=== PATIENT | male | born 1970 | race Caucasian/White ===

== ENCOUNTER → 2017-09-22 | Outpatient (CLI) | payer OTHER ==
[~2017-09-22] MED LIST: ATOR-54 PO; ATV1 PO; FURO-85 PO; GLC/500 PO; LOSA1TAB PO; RXC5 PO; VICODIN PO
[2017-09-22 18:17] LABS: RATIO 28.4 mcg/mg (0-30.0)
[2017-09-22 18:18] LABS: ALT/SGPT 47 U/L (12-78); BLOOD UREA NITROGEN 19 mg/dl (7-18); BUN/CREATININE RATIO 16.6 (10-20); CALCIUM 9.2 mg/dl (8.5-10.1); CARBON DIOXIDE 24 mmol/L (21-32); CHLORIDE 99 mmol/L (98-107); CREATININE 1.15 mg/dl (0.60-1.40); GLUCOSE 234 mg/dl (70-99); SODIUM 132 mmol/L (136-145)
[2017-09-23 06:39] LABS: ESTIMATED AVERAGE GLUCOSE 183 mg/dl; HA1C FLAG Normal (Normal)
== END | disposition home or self-care (01) ==
LOC: C.LABMFLN 13:46
PROVIDERS: ATTEND Family Medicine
DX: Z00.00 Encounter for general adult medical examination without abnormal findings (principal); E78.00 Pure hypercholesterolemia, unspecified; I10 Essential (primary) hypertension; E11.9 Type 2 diabetes mellitus without complications

== ENCOUNTER → 2018-05-16 | Outpatient (CLI) | payer OTHER ==
[~2018-05-16] MED LIST changes: +CYM/30 PO; +EMPA1TAB3 PO; +GABA-1219 PO; +GLIP-197 PO; +HYDR-3983 PO; +LORA10CA10 PO; +LOSA50TA54 PO; +LPT/40 PO; +METF500T5 PO; +NRN100 PO; +PROC10TA PO; +PRVHFAIN INH; +RANI150T85 PO; +VERA1CAP7 PO; +trazodone PO
--- NOTE | 2018-05-16 11:17 | DIAGNOSTIC IMAGING REPORT ---
C-SPINE ROUTINE 4 OR 5 VIEWS HISTORY: 47 years-old Male CERVICALAGIA acute neck pain with prior surgery COMPARISON: Cervical spine radiographs 07/28/2015 TECHNIQUE: 5 views of the cervical spine FINDINGS: The seventh vertebral segment is not well seen on the lateral view secondary to positioning of the patient's shoulder. Postoperative changes from discectomy with anterior plate and screw fusion at C5-C7. No evidence of hardware fracture or loosening. There is straightening of the normal cervical lordosis. Multilevel uncovertebral spurring with mild posterior disc space narrowing at C4-C5. Anterior bridging osteophytosis is also seen at this level. Mild multilevel facet arthrosis. No acute fracture or subluxation. Bony neuroforamina appear patent. Soft tissues are unremarkable. No prevertebral soft tissue swelling. IMPRESSION: 1. No acute fracture or subluxation. 2. Postoperative changes of discectomy with anterior plate and screw fusion at C5-C7. No evidence of hardware fracture or loosening. 3. Mild degenerative changes as above. The above report was generated using voice recognition software. It may contain grammatical, syntax or spelling errors. Electronically signed by: Joseph Galarza M.D. 05/16/2018 11:16 AM Dictated Date/Time: 05/16/2018 11:10 AM
== END | disposition home or self-care (01) ==
LOC: C.RADBC 10:41
PROVIDERS: ATTEND Physician Assistant
DX: M54.2 Cervicalgia (principal); M96.1 Postlaminectomy syndrome, not elsewhere classified

== ENCOUNTER 2022-10-22 07:51 | Observation (INO) ==
--- NOTE | 2022-09-15 15:44 | PAT Medication Instructions ---
Medication Instructions Date of Service September 15, 2022 Home Medications Medication Instructions Recorded lisinopril 5 mg tablet 5 mg PO QAM #90 tabs 05/01/20 verapamil 200 mg capsule 24hr 200 mg PO QAM #90 caps 05/01/[address],ext.release atorvastatin 40 mg tablet (Lipitor) 40 mg PO HS #90 tabs 05/02/20 empagliflozin 25 mg tablet 25 mg PO DAILY #90 tabs 05/02/20 (Jardiance) mirtazapine 30 mg tablet (Remeron) 30 mg PO HS #90 tabs 05/02/20 gabapentin 300 mg capsule 300 mg PO TID #180 caps 05/28/20 varicella-zoster glycoE vacc-[id number] 0.5 ml IM .COMPLEX #1 ea 05/28/20 adj(PF) 50 mcg/0.5 mL IM susp, kit (Shingrix (PF)) metformin 500 mg tablet 500 mg PO BID #60 tabs 06/05/20 prochlorperazine maleate 5 mg 5 - 10 mg PO QID PRN headache #30 07/18/20 tablet tabs omeprazole 40 mg capsule,delayed 40 mg PO BID #60 caps 09/05/20 release albuterol sulfate 90 mcg/actuation 2 inh inhalation Q6H PRN acute 12/29/20 aerosol inhaler brochitis #18 grams venlafaxine 150 mg capsule,extended release 24 hr (Effexor XR) 150 mg PO QAM lorazepam 1 mg tablet 2 mg PO BID docusate sodium 100 mg capsule (Stool Softener) 100 mg PO QPM sennosides 8.6 mg tablet (senna) 8.6 mg PO BID venlafaxine 75 mg capsule,extended release 24 hr 75 mg PO QAM lisinopril 5 mg tablet 5 mg PO QAM verapamil 200 mg capsule [address] pellet [address],ext.release 200 mg PO QAM atorvastatin 40 mg tablet (Lipitor) 40 mg PO HS empagliflozin 25 mg tablet (Jardiance) 25 mg PO DAILY mirtazapine 30 mg tablet (Remeron) 30 mg PO HS gabapentin 300 mg capsule 300 mg PO TID varicella-zoster glycoE vacc-AS01B adj(PF) 50 mcg/0.5 mL IM susp, kit (Shingrix (PF)) 0.5 ml IM .COMPLEX metformin 500 mg tablet 500 mg PO BID prochlorperazine maleate 5 mg tablet 5 - 10 mg PO QID PRN omeprazole 40 mg capsule,delayed release 40 mg PO BID albuterol sulfate 90 mcg/actuation aerosol inhaler 2 inh inhalation Q6H PRN aspirin 81 mg tablet 81 mg PO QAM loratadine 10 mg tablet (Allergy Relief (loratadine)) 10 mg PO QAM multivitamin 1 tab PO QAM STOP 3 days before surgery empagliflozin 25 mg tablet (Jardiance) 25 mg PO DAILY Continue as directed prochlorperazine maleate 5 mg tablet 5 - 10 mg PO QID PRN(if needed) DO NOT take the morning of surgery sennosides 8.6 mg tablet (senna) 8.6 mg PO BID lisinopril 5 mg tablet 5 mg PO QAM metformin 500 mg tablet 500 mg PO BID loratadine 10 mg tablet (Allergy Relief (loratadine)) 10 mg PO QAM multivitamin 1 tab PO QAM Take morning of surgery With a small sip of water, OTHERWISE NOTHING TO EAT OR DRINK AFTER MIDNIGHT: venlafaxine 150 mg capsule,extended release 24 hr (Effexor XR) 150 mg PO QAM venlafaxine 75 mg capsule,extended release 24 hr 75 mg PO QAM lorazepam 1 mg tablet 2 mg PO BID verapamil 200 mg capsule [address] pellet [address],ext.release 200 mg PO QAM gabapentin 300 mg capsule 300 mg PO TID omeprazole 40 mg capsule,delayed release 40 mg PO BID aspirin 81 mg tablet 81 mg PO QAM (unless directed otherwise by surgeon) albuterol sulfate 90 mcg/actuation aerosol inhaler 2 inh inhalation Q6H PRN(use if needed; please bring with you to hospital day of surgery if possible) Take evening before surgery lorazepam 1 mg tablet 2 mg PO BID docusate sodium 100 mg capsule (Stool Softener) 100 mg PO QPM sennosides 8.6 mg tablet (senna) 8.6 mg PO BID atorvastatin 40 mg tablet (Lipitor) 40 mg PO HS mirtazapine 30 mg tablet (Remeron) 30 mg PO HS gabapentin 300 mg capsule 300 mg PO TID metformin 500 mg tablet 500 mg PO BID omeprazole 40 mg capsule,delayed release 40 mg PO BID albuterol sulfate 90 mcg/actuation aerosol inhaler 2 inh inhalation Q6H PRN(if needed) Other Notes If you have any questions please call us at [phone] or [phone] or [phone] or [phone]
--- NOTE | 2022-09-22 11:17 | Anesthesiology Consultation ---
Date of Service September 22, 2022 Assessment & Plan (1) Encounter for pre-operative examination: Chart Review Chart Review: Acceptable Risk for Surgery and Patient seen in Pre Admission Testing - Check BSG AM DOS -Due to comorbidities- would NOT recommend Outpatient Joint Program for patient Per PAT appt on 09/22/22, patient denies any recent travel or large group activities. Pt's sick 09/06/22- dx'ed with flu. No Covid test. Pt denies a ny symptoms. Pt is vaccinated for Covid. Will leave to surgeon's discretion if preop Covid testing needed. Educated on importance of using Covid precautions one week prior to surgery Left knee arthroscopy, PMM 12/05/19= Done under [facility] with LMA #5. Teaching & Discussion Pre-Anesthesia Teaching/Discussion Notes: Instructed NPO after midnight before surgery,except medications with 15 cc of water. Medication instructions provided according to the PAT guidelines. History Surgery Operation Date: 10/22/22 08:10 Proposed Procedures p Right Total Knee Arthroplasty - Daren Ferris, Height/Weight Height: 6 ft 2 in Weight: 125.2 kg Allergies Allergy/AdvReac Type Severity Reaction Status Date / Time Penicillins Allergy Unknown in Verified 09/15/22 11:10 childhood, unknown Medications Home Medications Medication Instructions Recorded Confirmed Last Taken venlafaxine 150 mg 150 mg PO QAM 08/16/19 09/15/22 12/04/19 06:30 capsule,extended release 24 hr (Effexor XR) lorazepam 1 mg tablet 2 mg PO BID 11/29/19 09/15/22 12/04/19 22:00 docusate sodium 100 mg capsule 100 mg PO QPM 03/10/20 09/15/22 Unknown (Stool Softener) sennosides 8.6 mg tablet (senna) 8.6 mg PO BID 03/10/20 09/15/22 Unknown venlafaxine 75 mg capsule,extended 75 mg PO QAM 03/10/20 09/15/22 Unknown release 24 hr lisinopril 5 mg tablet 5 mg PO QAM #90 tabs 05/01/20 09/15/22 Unknown verapamil 200 mg capsule 24hr 200 mg PO QAM #90 caps 05/01/20 09/15/[address],ext.release atorvastatin 40 mg tablet (Lipitor) 40 mg PO HS #90 tabs 05/02/20 09/15/22 Unknown empagliflozin 25 mg tablet 25 mg PO DAILY #90 tabs 05/02/20 09/15/22 Unknown (Jardiance) mirtazapine 30 mg tablet (Remeron) 30 mg PO HS #90 tabs 05/02/20 09/15/22 Unknown gabapentin 300 mg capsule 300 mg PO TID #180 caps 05/28/20 09/15/22 Unknown varicella-zoster glycoE vacc-AS01B 0.5 ml IM .COMPLEX #1 ea 05/28/20 09/15/22 Unknown adj(PF) 50 mcg/0.5 mL IM susp, kit (Shingrix (PF)) metformin 500 mg tablet 500 mg PO BID #60 tabs 06/05/20 09/15/22 Unknown prochlorperazine maleate 5 mg 5 - 10 mg PO QID PRN headache #30 07/18/20 09/15/22 Unknown tablet tabs omeprazole 40 mg capsule,delayed 40 mg PO BID #60 caps 09/05/20 09/15/22 Unknown release albuterol sulfate 90 mcg/actuation 2 inh inhalation Q6H PRN acute 12/29/20 09/15/22 Unknown aerosol inhaler brochitis #18 grams aspirin 81 mg tablet 81 mg PO QAM 09/15/22 09/15/22 Unknown loratadine 10 mg tablet (Allergy 10 mg PO QAM 09/15/22 09/15/22 Unknown Relief (loratadine)) multivitamin 1 tab PO QAM 09/15/22 09/15/22 Unknown Past Medical History Medical History Anxiety Bulging discs L4, L5 Cervical post-laminectomy syndrome Limited ROM Chronic obstructive pulmonary disease Well controlled w/ prn inhaler Depression Diabetes mellitus, type 2 NIDDM- glucose stable Dysphagia Occ - chronic issue - stable Fibromyalgia Gastroesophageal reflux occasional Hearing loss, left History of COVID-19 10/2021 - mild cold symptoms, no hospitalization, no current issues Hyperlipidemia Hypertension Migraine Obesity Occipital neuralgia Chronic- stable - constant pain Peripheral neuropathy Hands and feet Sleep apnea Mild- noncompliant with device Exercise / Class Metabolic Activity III < 4 Walking/Shop/Light housework (one flight of stairs- no chest pain, mild SOB ) Past Family History Family History Uncle Lung cancer Grandfather Lung cancer Aunt Diabetes Grandmother Diabetes Sister Diabetes Father Diabetes Depression Family history of esophageal cancer Mother Diabetes Depression Myocardial infarction Other No family history of adverse response to anesthesia Denies family history of Colon cancer Ovarian cancer Prostate cancer Breast cancer Past Surgical History Surgical History H/O cervical spinal arthrodesis History of carpal tunnel surgery of left wrist History of colonoscopy History of fusion of cervical spine C5 C6 C7 History of neck surgery nerve ablation to C2, C3, C4, C5 History of surgery nerve ablation L4, L5, S1 History of tooth extraction History of wisdom tooth extraction S/P knee surgery Left knee arthroscopy/PMM (12/05/19): LMA#[address] [facility]. No issues noted per post- op anesthesia progress note. Past Anesthesia History No Hx of Anesthesia Complications and No Family Hx of Anesthesia Complications History of PONV No Hx of PONV and No Hx of Motion Sickness Social History Smoking Status: Current every day smoker tobacco type: cigarettes Smoking cigarettes per day: 30-advised Do You Dip or Chew Tobacco: Yes (1 can/month- advised) Hx Alcohol Use: No Hx Substance Use: No substance use type: does not use Review of Systems Chronic FUNG, cough, wheezing- stable/mild- secondary to COPD Patient denies chest pain, shortness of breath at rest, palpitations. No hx of seizures, stroke, ND. No hx of blood clots or blood transfusions Physical Exam Vital Signs VITALS BP 123/76 P 97 TEMP 98.6 SP02 96% RESP 16 Constitutional no acute distress ENMT Mouth: no TMJ clicking Thyromental Distance: > or= 3.5 Finger Breadths (3.5) Mallampati Class: III Missing molars Neck + limited neck extension (significant ) Respiratory normal respiratory effort; no respiratory distress Auscultation: lungs clear to auscultation bilaterally; no wheezes Cardiovascular Rate/Rhythm: regular rate and regular rhythm Heart Sounds: no murmur Vessels: no carotid bruit Musculoskeletal Spine: no pain with cervical ROM Extremities: extremities normal to inspection Psychiatric Orientation: alert Lab Results Anesthesia Preop Results Results Anesthesia Widget: WBC 9.14 K/ul (4.8-10.8) 09/22/22 Hgb 16.4 g/dl (14.0-18.0) 09/22/22 Hct 47.1 % (40.1-51.0) 09/22/22 Plt 244 K/uL (130-400) 09/22/22 Na 137 mmol/L (136-145) 09/22/22 K 4.1 mmol/L (3.5-5.1) 09/22/22 Cl 104 mmol/L (98-107) 09/22/22 CO2 25 mmol/L (21-32) 09/22/22 BUN 20 mg/dl (6-23) 09/22/22 Creat 0.86 mg/dl (0.6-1.4) 09/22/22 Glucose Level 173 mg/dl (70-99(Fasting)) H 09/22/22 PT 10.0 Seconds (9.0-12.0) 09/22/22 PTT 26.6 Seconds (21.0-31.0) 09/22/22 INR 0.9 (0.9-1.1) 09/22/22 HA1c 8.2 % (4.5-5.6) H 09/22/22 Blood Type O Positive 09/22/22 Antibody Screen NEGATIVE 09/22/22 Testing Electrocardiogram Date: 09/22/22 Findings: + NSR @ (93bpm ) Normal EKG per cardio Chest X-Ray Date: 09/22/22 Findings: + NAD Stress Test Date: 08/12/20 Type: nuclear Lexiscan nuclear cardiac stress test negative for ischemia Small area of mild intensity perfusion defect in the apical anteroseptum at rest, normal in stress this is suggestive of an attenuation artifact. LV EF 59%. Gated SPECT images reveals normal myocardial thickening and wall motion COVID-19 Risk Screen Screening Information COVID-19 Screen Date: 09/22/22 Exposure 21 Days Family/Household +COVID Last 21 Days: No Exposure 10 Days Any COVID Exposure Last 10 Days: No Symptoms Last 10 Days Experienced COVID Sx Last 10 Days: No + COVID 0-90 Days COVID + in Last 0-90 Days: No Risk Plan COVID Risk Plan: No Risk Identified Patient Education COVID Preop Screening Education Complete: Yes
--- NOTE | 2022-10-21 16:22 | History & Physical Report ---
Date of Service October 21, 2022 Assessment & Plan (1) Right knee DJD: We will proceed with a right total knee arthroplasty. Postoperatively he will be started on aspirin for DVT prophylaxis and kept overnight in the hospital for postoperative medical management. [facility] History of Present Illness Chief Complaint: Osteoarthritis of the right knee. Primary Care Provider: Suzanne Gutierrez MD Sarabjit is a pleasant 51-year-old male who has been dealing with chronic increasing bilateral knee pain. He has been seeing Dr. Kaba. He has an MRI of his knee, which shows osteoarthritis. X-rays show some arthritis as well. He has been treated with aspirations and injections of his knees. He also has a lot of back pain and he uses a cane mostly because of this back. He is starting to have a more and more knee pain. It bothers him when he sleeps at night. Whenever he stands for long periods of time, he had stabbing pain on the medial aspect of his knees. After failing extensive conservative treatment with Dr. Kaba, he has elected to proceed with a right total knee arthroplasty. Allergies Allergy/AdvReac Type Severity Reaction Status Date / Time Penicillins Allergy Unknown in Verified 10/06/22 14:09 childhood, unknown Home Medications Medication Instructions Recorded Confirmed Type venlafaxine 150 mg 150 mg PO QAM 08/16/19 09/15/22 History capsule,extended release 24 hr (Effexor XR) lorazepam 1 mg tablet 2 mg PO BID 11/29/19 09/15/22 History docusate sodium 100 mg capsule 100 mg PO QPM 03/10/20 09/15/22 History (Stool Softener) sennosides 8.6 mg tablet (senna) 8.6 mg PO BID 03/10/20 09/15/22 History venlafaxine 75 mg capsule,extended 75 mg PO QAM 03/10/20 09/15/22 History release 24 hr lisinopril 5 mg tablet 5 mg PO QAM #90 tabs 05/01/20 09/15/22 Rx verapamil 200 mg capsule 24hr 200 mg PO QAM #90 caps 05/01/20 09/15/[address],ext.release atorvastatin 40 mg tablet (Lipitor) 40 mg PO HS #90 tabs 05/02/20 09/15/22 Rx empagliflozin 25 mg tablet 25 mg PO DAILY #90 tabs 05/02/20 09/15/22 Rx (Jardiance) mirtazapine 30 mg tablet (Remeron) 30 mg PO HS #90 tabs 05/02/20 09/15/22 Rx varicella-zoster glycoE vacc-AS01B 0.5 ml IM .COMPLEX #1 ea 05/28/20 09/15/22 Rx adj(PF) 50 mcg/0.5 mL IM susp, kit (Shingrix (PF)) prochlorperazine maleate 5 mg 5 - 10 mg PO QID PRN headache #30 07/18/20 09/15/22 Rx tablet tabs omeprazole 40 mg capsule,delayed 40 mg PO BID #60 caps 09/05/20 09/15/22 Rx release albuterol sulfate 90 mcg/actuation 2 inh inhalation Q6H PRN acute 12/29/20 09/15/22 Rx aerosol inhaler brochitis #18 grams aspirin 81 mg tablet 81 mg PO QAM 09/15/22 09/15/22 History loratadine 10 mg tablet (Allergy 10 mg PO QAM 09/15/22 09/15/22 History Relief (loratadine)) multivitamin 1 tab PO QAM 09/15/22 09/15/22 History gabapentin 300 mg capsule See Rx Instructions PO TID 10/06/22 History metformin 500 mg tablet 1,000 mg PO BID 10/06/22 History tizanidine 4 mg capsule 4 mg PO Q8H PRN 10/06/22 10/06/22 History Past Med/Surg History Medical History Anxiety Bulging discs L4, L5 Cervical post-laminectomy syndrome Limited ROM Chronic obstructive pulmonary disease Well controlled w/ prn inhaler Depression Diabetes mellitus, type 2 NIDDM- glucose stable Dysphagia Occ - chronic issue - stable Fibromyalgia Gastroesophageal reflux occasional Hearing loss, left History of COVID-19 10/2021 - mild cold symptoms, no hospitalization, no current issues Hyperlipidemia Hypertension Lumbar disc herniation Migraine Obesity Occipital neuralgia Chronic- stable - constant pain Peripheral neuropathy Hands and feet Sleep apnea Mild- noncompliant with device Surgical History H/O cervical spinal arthrodesis History of carpal tunnel surgery of left wrist History of colonoscopy History of fusion of cervical spine C5 C6 C7 History of neck surgery nerve ablation to C2, C3, C4, C5 History of surgery nerve ablation L4, L5, S1 History of tooth extraction History of wisdom tooth extraction S/P knee surgery Left knee arthroscopy/PMM (12/05/19): LMA#5 at [facility]. No issues noted per post- op anesthesia progress note. Family History Uncle Lung cancer Grandfather Lung cancer Aunt Diabetes Grandmother Diabetes Sister Diabetes Father Diabetes Depression Family history of esophageal cancer Mother Diabetes Depression Myocardial infarction Other No family history of adverse response to anesthesia Denies family history of Colon cancer Ovarian cancer Prostate cancer Breast cancer Social History Smoking Status: Current every day smoker Cigarettes Per Day: 30-advised; Second Hand Exposure: No; Hx Alcohol Use: No Hx Substance Use: No Preferred Language: Cuban Communication Ability: Effective Environmental Engineering Technician Required: No Beliefs That Will Affect Care: None Current Living Situation: Spouse and Family Current Living Situation Comment: Lives with and son Feels Safe at Home: Yes Assistive Devices: Cane and Glasses Review of Systems All systems reviewed & are unremarkable except as noted in HPI & below. Physical Exam On physical examination the right knee, he is a slight varus deformity. His range of motion of 0 to 120 degrees. No instability. Pain of the distal medial femoral condyle.. Constitutional WD/WN, vitals as above Eyes PERRL, conjunctivae normal, anicteric sclerae ENMT external ear and nose normal, oropharynx normal Neck trachea midline, no thyromegaly Respiratory normal respiratory effort, lungs clear to auscultation Cardiovascular RRR, no murmur, no edema Gastrointestinal (Abdomen) normal bowel sounds, soft, nontender, no hepatosplenomegaly Skin no rashes, warm and dry Psychiatric A+Ox3, euthymic affect Results & Data Results & Data Laboratory Results . Diagnostic Findings X-rays of the right knee show advanced arthritis with joint space narrowing, osteophyte formation, and [id number] articulation. PG Care Time/CCT Total # of Minutes Spent Total Time Spent with Patient: Total time spent is greater than 50% in coordination of care (as documented) at patient's floor/unit and/or counseling patient: Coding Level of Care Code None Diagnoses Right knee DJD M17.11
[~2022-10-22 07:51] MED LIST changes: +ACETAMINOPHEN 500 MG TAB PO SCH; -ATOR-54 PO; -ATV1 PO; +BUPIVACAINE 0.5 % 5 MG/1 ML PF 10ML VIAL ONE; -CYM/30 PO; -EMPA1TAB3 PO; +FAMOTIDINE 20 MG TAB PO SCH; -FURO-85 PO; -GABA-1219 PO; +GABAPENTIN 300 MG CAP PO SCH; -GLC/500 PO; -GLIP-197 PO; -HYDR-3983 PO; -LORA10CA10 PO; -LOSA1TAB PO; -LOSA50TA54 PO; -LPT/40 PO; +LR 500ML BOLUS, THEN 15ML/HR IV SCH; +LR 60ML/HR IV SCH; -METF500T5 PO; -NRN100 PO; +ORTHO JOINT MIX INFIL SCH; -PROC10TA PO; -PRVHFAIN INH; -RANI150T85 PO; +ROPIVACAINE 0.5% 5 MG/ML 30 ML VIAL ONE; -RXC5 PO; +TRANEXAMIC ACID 1,000 MG **IV Intra-op IV SCH; +TRANEXAMIC ACID 1,000 MG **IV Pre-op IV SCH; -VERA1CAP7 PO; -VICODIN PO; +dexAMETHasone 4 MG TAB PO SCH; -trazodone PO
--- NOTE | 2022-10-22 09:30 | History & Physical Bridge Note ---
Date of Service October 22, 2022 History & Physical Bridge Note I have examined the patient, reviewed the History & Physical and in the interval since the performance of the History & Physical I have noted the following changes of clinical significance: no changes noted
[2022-10-22] MEDS ORDERED: ATROPINE SULFATE 0.1 MG/ML 10ML SYR IV PRN (09:35)
[2022-10-22] MEDS ORDERED: fentaNYL citrate 100 MCG/2 ML VIAL IV PRN (09:35)
[2022-10-22] MEDS ORDERED: ePHEDrine sulfate 50 MG/ML AMP IV PRN (09:35)
[2022-10-22] MEDS ORDERED: ONDANSETRON INJ 2 MG/ML 2 ML VIAL IV PRN ×2 (09:35→14:18)
[2022-10-22] MEDS ORDERED: NovoLIN-R INSULIN PER UNIT CHARGE ONE (09:39)
[2022-10-22] MEDS ORDERED: MIDAZOLAM HCL 1 MG/ML 2ML VIAL ONE ×2 (09:46)
[2022-10-22] MEDS ORDERED: ORTHO JOINT ANESTHETIC ONE (09:57)
[2022-10-22] MEDS ORDERED: KETAMINE 50 MG/5 ML SYRINGE ONE (10:49)
[2022-10-22] MEDS ORDERED: INSULIN HUMAN REGULAR SC ONE (11:30)
[2022-10-22] MEDS ORDERED: INSULIN HUMAN REGULAR SC SCH (11:30)
--- NOTE | 2022-10-22 11:57 | Operative Report ---
PG Post Operative Report Pre & Post Diagnosis Operation Date: 10/22/22 10:30 Pre-Op Diagnosis: Degenerative Joint Disease Right Knee Post-Op Diagnosis: Degenerative Joint Disease Right Knee I identified the patient and participated in the time-out.: Yes Procedure Operation Date: 10/22/22 10:30 Actual Procedures p Right Total Knee Arthroplasty(Right) - Daren Ferris DO Surgeon Daren Ferris DO [employer] Daren Foss PA-C Estimated Blood Loss 30 Findings Consistent with Post-Op Diagnosis Specimens Right femoral and tibial bone Description of Procedure Implants used: I used a Josy Persona total knee arthroplasty system with a size 12 standard PS femur, H tibia, 40 oval patella, and a size 10 CPS polyethylene bearing. All components were cemented in place with Biomet cement. Sarabjit juan jose [facility] for the above procedure. He was seen in the preoperative holding area and the operative extremity was identified and signed. He was given a preoperative antibiotic, TXA, a spinal anesthetic and an adductor nerve block. He was taken back to the operating room and laid on the table in supine position. He was given basic sedation. The operative knee was then prepped and draped in sterile fashion. A timeout was done, and the patient and the operative extremity was properly identified. A midline incision was made directly over the patella. Dissection was taken down to the extensor mechanism. A subvastus arthrotomy was used. The medial retinaculum was released and the fat pad was mostly excised. The knee was flexed and the ACL, PCL, and meniscus were removed. A drill was sent down the center of the femoral canal followed by an intramedullary mendez. Off that mendez a distal femoral cutting block was placed. 9 mm was resected off the distal femur at 5 of valgus. A posterior referencing AP sizing guide was then placed on the distal femur. The femur measured to be a size 12. 2 drill holes were placed in 3 of external rotation. A 4-in-1 cutting block was then impacted into place. Anterior, posterior, and chamfer cuts were then made. The proximal tibia was then exposed. An external tibial alignment guide was placed. A tibial cut guide was then anchored in place and the proximal tibia was then resected. The posterior aspect of the knee was then opened up and any additional meniscus fragments and osteophytes were removed. The tibia measured to be a size H. The tibial plate was then placed in the appropriate rotation and the tibia was drilled and punched. Trial components were then placed. I used a size 10 CPS polyethylene insert. The knee was brought through a full range of motion and felt to be stable. The peg holes for the femoral component were then drilled. The patella was then everted and 9 mm was resected off the posterior aspect of the patella. The patella measured to be a size 40 oval. 3 peg holes were then drilled. A trial patella was placed. The knee was once again brought through a full range of motion and felt to be stable. Trial components were then removed. The surrounding soft tissues were injected with 100 cc of an orthopedic pain control cocktail. All components were then cemented into place with Biomet cement. The final polyethylene insert was then snapped into place. Once cement was dry the tourniquet was deflated. Hemostasis was obtained. A dilute betadyne lavage was then done for 3 minutes. The joint was then irrigated with normal saline solution. The subvastus arthrotomy was then closed with #1 Vicryl suture. The skin was closed with 2-0 Vicryl, 3-0V lock suture, and yvoany. A soft compressive dressing was placed. He was then transferred to a hospital bed and taken to the postanesthesia care unit in stable condition. He tolerated the procedure well. Daren Foss PA-C, was present for the entire procedure. He was critical for patient positioning, prepping, draping, retraction exposure, wound closure and application of sterile dressing. I attest to the content of the Intraoperative Record and any orders documented therein. Any exceptions are noted below.
[2022-10-22] MEDS ORDERED: PROPOFOL IV EMULSION 10 MG/ML 20 ML VIAL IV ONE ×2 (12:09→12:19)
--- NOTE | 2022-10-22 12:52 | XRay Report ---
RIGHT KNEE 2 VIEWS History: Right total knee arthroplasty. Degenerative arthritis. Postop. FINDINGS: The patient is status post a right total knee arthroplasty. The hardware is intact. No frac ture or dislocation. Skin yovany are in place. IMPRESSION: Right total knee arthroplasty. No evidence for hardware complication. ACT 112: Negative or not required by law. Electronically signed by: Jose Manuel Alfredo M.D. 10/22/2022 12:50 PM
--- NOTE | 2022-10-22 13:22 | Anesthesiology Progress Note ---
Date of Service October 22, 2022 Anesthesia Post Procedure Vital Signs Vital Signs: Temp Pulse Pulse Resp BP Pulse Ox O2 Del Method 10/22/22 13:10 78 15 115/69 92 Room Air 10/22/22 12:50 88 17 119/68 93 Room Air 10/22/22 12:40 75 15 127/71 93 Room Air 10/22/22 12:30 75 12 119/70 95 Room Air 10/22/22 12:23 98.8 F 75 14 118/71 95 Room Air 10/22/22 08:32 97.7 F 93 H 20 140/87 97 Room Air Pain Intensity Right Knee: Pain Intensity: 3 Lower Back: Pain Intensity: 7 Transfer of Care Handoff Completed per policy Notes Mental Status: alert / awake / arousable and participated in evaluation Patient Amnestic to Procedure: Yes Nausea / Vomiting: adequately controlled Pain: adequately controlled Airway Patency, RR, SpO2: stable & adequate BP & HR: stable & adequate Hydration State: stable & adequate Neuraxial Anesthesia: was administered and sensory block is resolving Anesthetic Complications: no major complications apparent and Pt Satisfied with anesthetic care
[2022-10-22] MEDS ORDERED: tiZANidine HCL 4 MG TABLET PO PRN (14:18)
[2022-10-22] MEDS ORDERED: NALOXONE HCL 0.4 MG/1 ML VIAL/CARP IV PRN (14:18)
[2022-10-22] MEDS ORDERED: oxyCODONE HCL IR 5 MG TAB (IMMEDIATE RELEASE) PO PRN (14:18)
[2022-10-22] MEDS ORDERED: METOCLOPRAMIDE HCL INJ 5 MG/ML 2 ML VIAL IV PRN (14:18)
[2022-10-22] MEDS ORDERED: ALBUTEROL HFA 8 GM INHALER INH PRN (14:18)
[2022-10-22] MEDS ORDERED: MAGNESIUM HYDROXIDE SUSP 30 ML UDC PO PRN (14:18)
[2022-10-22] MEDS ORDERED: PHARMACY GLYCEMIC MGMT CONSULT PRN (14:18)
[2022-10-22] MEDS ORDERED: bisacodyL 10 MG SUPP PR PRN (14:18)
[2022-10-22] MEDS ORDERED: PROCHLORPERAZINE MALEATE 5 MG TAB PO PRN (14:18)
[2022-10-22] MEDS ORDERED: HYDROmorphone INJ 0.5 MG/0.5 ML SYR IV PRN (14:18)
[2022-10-22] MEDS ORDERED: LORazepam 1 MG TAB PO PRN (14:26)
[2022-10-22] MEDS: SODIUM CHLORIDE 0.9% 1000ML 1,000 ML IV SCH (14:41)
[2022-10-22] MEDS: ACETAMINOPHEN 500 MG TAB PO SCH ×2 (14:53→21:07)
[2022-10-22] MEDS ORDERED: GLUCOSE 10 TAB/TUBE PO PRN (15:00)
[2022-10-22] MEDS ORDERED: CARBOHYDRATES FOR HYPOGLYCEMIA PO PRN (15:00)
[2022-10-22] MEDS ORDERED: LANTUS PER UNIT CHARGE SQ ONE (15:00)
[2022-10-22] MEDS ORDERED: GLUCOSE 40% GEL 15 GM TUBE PO PRN (15:00)
[2022-10-22] MEDS ORDERED: DEXTROSE 50% 50 ML SYRINGE IV PRN (15:00)
[2022-10-22] MEDS ORDERED: GLUCAGON FOR INJ 1 MG VIAL IM PRN (15:00)
[2022-10-22] MEDS: INSULIN ASPART PER UNIT SC SCH ×4 (15:31→23:55)
[2022-10-22] MEDS: GABAPENTIN 400 MG CAP PO SCH ×2 (15:34→20:23)
[2022-10-22] MEDS: KETOROLAC 30 MG/ML VIAL IV SCH ×2 (15:35→20:22)
[2022-10-22] MEDS: ceFAZolin 2000MG 2,000 MG/15 ML SYR IV SCH (17:50)
[2022-10-22] MEDS: ASPIRIN 81 MG ECTAB PO SCH (20:23)
[2022-10-22] MEDS: PANTOprazole 40 MG TAB PO SCH (20:23)
[2022-10-22] MEDS: DOCUSATE SODIUM 100 MG CAP PO SCH (20:25)
[2022-10-22] MEDS ORDERED: LANTUS PER UNIT CHARGE SQ STA (20:44)
[2022-10-22] MEDS ORDERED: INSULIN HUMAN REGULAR PER UNIT 6 UNITS in SYRINGE 5.94 ML IV ONE (21:00)
[2022-10-22] MEDS ORDERED: MIRTAZAPINE TAB 15 MG TAB PO SCH (21:00)
[2022-10-22] MEDS ORDERED: ATORVASTATIN 40 MG TAB PO SCH (21:00)
[2022-10-22] MEDS ORDERED: SENNA 8.6 MG TAB PO SCH (21:00)
[2022-10-22] MEDS ORDERED: LORazepam 1 MG TAB PO SCH (21:00)
[2022-10-23] MEDS: INSULIN ASPART PER UNIT SC SCH ×2 (04:36→08:45)
[2022-10-23] MEDS: KETOROLAC 30 MG/ML VIAL IV SCH ×2 (04:37→08:02)
[2022-10-23] MEDS: ceFAZolin 2000MG 2,000 MG/15 ML SYR IV SCH (04:37)
[2022-10-23] MEDS: ACETAMINOPHEN 500 MG TAB PO SCH (04:43)
[2022-10-23] MEDS: SODIUM CHLORIDE 0.9% 1000ML 1,000 ML IV SCH (05:17)
--- NOTE | 2022-10-23 07:21 | Orthopedic Progress Note ---
Date of Service October 23, 2022 Assessment & Plan (1) Status post right knee replacement: Overall he is doing very well. He is not having much pain in the right knee. He will be seen by physical therapy today for range of motion exercises and ambulation. He is on aspirin for DVT prophylaxis. He can be discharged home later today. He will follow-up orthopedics in 2 weeks. Jordan Whipple was seen and examined at bedside this morning. Overall is doing very well. He is not having too much pain in the right knee. He has been up and ambulating to the bathroom. He has no complaints.. Review of Systems All systems reviewed & are unremarkable except as noted in HPI & below. Physical Exam On physical examination of the right knee, the dressing is clean and dry. His leg is out full extension. He has active dorsiflexion and plantarflexion of his right ankle.. Results & Data Results & Data Laboratory Results . Diagnostic Findings Postoperative x-rays of the right knee show the prosthesis to be in anatomic alignment without any evidence of fracture, screws, or loosening.. PG Care Time/CCT Total # of Minutes Spent Total Time Spent with Patient: Total time spent is greater than 50% in coordination of care (as documented) at patient's floor/unit and/or counseling patient: Coding Level of Care Code 26991 Post Operative Follow-Up Diagnoses Status post right knee replacement Z96.651
--- NOTE | 2022-10-23 07:22 | Discharge Summary ---
Date of Service October 23, 2022 Admission HPI (Per Admitting) Sarabjit is a pleasant 51-year-old male who has been dealing with chronic increasing bilateral knee pain. He has been seeing Dr. Kaba. He has an MRI of his knee, which shows osteoarthritis. X-rays show some arthritis as well. He has been treated with aspirations and injections of his knees. He also has a lot of back pain and he uses a cane mostly because of this back. He is starting to have a more and more knee pain. It bothers him when he sleeps at night. Whenever he stands for long periods of time, he had stabbing pain on the medial aspect of his knees. After failing extensive conservative treatment with Dr. Kaba, he has elected to proceed with a right total knee arthroplasty. Admission Exam (Per Admitting) On physical examination the right knee, he is a slight varus deformity. His range of motion of 0 to 120 degrees. No instability. Pain of the distal medial femoral condyle.. Principal Diagnosis Same as "Discharge Diagnosis" noted below under Discharge Instructions. Discharge Exam On physical examination of the right knee, the dressing is clean and dry. His leg is out full extension. He has active dorsiflexion and plantarflexion of his right ankle.. Discharge Data Procedures Performed Operation Date: 10/22/22 10:30 Actual Procedures p Right Total Knee Arthroplasty(Right) - Daren Ferris DO Ordered Studies 10/22/22 05:00 US - OR guided needle placemen Routine Hospital Course (1) Status post right knee replacement: On October 22, 2022 Sarabjit arrived at [facility] and underwent a right knee replaced without complication. He had a spinal anesthetic. Postoperatively he was started on aspirin for DVT prophylaxis and transferred to the general orthopedic floors. His hospital course was uneventful. On postop day #1, his vital signs were stable and his pain was well controlled. He was able to participate well with physical therapy doing ambulation and range of motion exercises. He was then discharged home. He will follow with orthopedics in 2 weeks. PG Care Time/CCT Total # of Minutes Spent Total Time Spent with Patient: Total time spent is greater than 50% in coordination of care (as documented) at patient's floor/unit and/or counseling patient: Discharge Plan Discharge Items Patient Disposition: Home - Home Health Services Reason For Visit: POST OP Discharge Diagnosis: Right knee replacement Activity: Per Instructions section Non-emergency contact: Surgeon Call non-emergency contact if: your wound has increased redness and your wound has increased drainage Follow-up/Referrals: Suzanne Gutierrez MD [Primary Care Provider] - Diet: Regular Addtl Attending Provider Instructions: Activity and Therapy Recommendations: * If you are using [facility] then therapy will be provided at your home until they feel you have accomplished all of your goals. * If you are using [facility] then Physical Therapy will be provided until they feel you are ready to start Outpatient Physical Therapy. * If you are not using home therapy then Outpatient Physical Therapy should start about 3-5 days from your day of surgery. Therapy will last about 6-10 weeks * It is important not to put a pillow under your knee when you are relaxing or sleeping. It is just as important to make sure you are getting your knee perfectly straight as it is to regain your knee bend. * You were shown a series of exercises in the hospital. Do these exercises three times each day including the exercises you were shown in physical therapy. * Get up and walk several times each day. For the first four weeks, try not to stand or walk for more than one hour at a time. If you do stand or walk for more than one hour, you will not hurt anything, but your leg will likely swell. * As you feel comfortable, you may change from the walker or crutches to a cane and then to independent walking. Medications: * Narcotic You will likely be sent home from the hospital with a prescription for the narcotic pain medication that worked best throughout your stay. * Aspirin Most patients will be required to take Aspirin 81mg twice a day for 6 weeks after surgery. This is obtained [id number] and a prescription is not necessary. * Celebrex -take Celebrex twice a day for 2 weeks after surgery. * Other medications may be prescribed for specific circumstances. If you have any questions, please call the office at . * Resume previous home medications unless otherwise instructed TEDs/Elastic Stockings: The white elastic stockings help limit swelling and prevent blood clots from forming in your legs.~ The more you wear them, the more they work. Wear them for six weeks. Dressing Care: The dressing can be changed after physical therapy on postop day #1. Daily dry dressing changes for a few days, especially if the incision is still draining some. If the incision is not draining then you may leave the yovany open to air. If there is a little bit of drainage or if the yovany are getting stuck on your clothing then cover the incision with a dry dressing. The yovany will be removed at your 2 week follow-up appointment. Showering: You may shower 5 days from the day of surgery as long as the incision is no longer draining. You may shower with the yovany exposed. Let soapy water run over the yovany and pat them dry. Do not scrub or soak the incision. Things To Watch For: * Drainage from the incision site that occurs more than one week after your surgery. * Increased redness at the incision site. * Fever above 102 degrees Fahrenheit. * Unusual chest pain or shortness of breath. * Call [facility] at with any of the above problems Follow-Up Visit: Follow-up with Dr. Ferris's PA (Daren Foss) 2-3 weeks after your day of surgery. He will remove your yovany and answer any questions. If you have any additional questions or concerns, Dr Ferris is usually in the office at the same time and will be available An appointment was probably scheduled when you signed-up for surgery in the office. If you have any questions call Office Instructions: More detailed instructions as well as Frequently Asked Questions were provided in a folder by our office when you signed-up for surgery. Please review these instructions when you get home. If you have any further questions or concerns, please feel free to call the office at [phone] Pending Studies at Discharge: No Stand-Alone Forms: [facility], Smoking Cessation Medications and DC Order Prescriptions: New aspirin 81 mg Tablet,Delayed Release (Dr/Ec) 81 mg PO BID 42 Days Qty: 84 0RF hydrocodone-acetaminophen 5-325 mg tablet 1 tab PO Q6H PRN (Reason: pain) Qty: 30 0RF celecoxib [Celebrex] 200 mg capsule 200 mg PO BID Qty: 28 0RF Rx Instructions: Take 1 pill twice a day for 2 weeks after surgery Continued tizanidine [Zanaflex] 4 mg capsule 4 mg PO Q8H PRN (Reason: Muscle Spasm) metformin 500 mg tablet 1,000 mg PO BID venlafaxine [Effexor XR] 150 mg capsule,extended release 24hr 150 mg PO QAM lorazepam 1 mg tablet 2 mg PO BID PRN (Reason: Anxiety) lisinopril 5 mg tablet 5 mg PO QAM Qty: 90 1RF atorvastatin [Lipitor] 40 mg tablet 40 mg PO HS Qty: 90 1RF Jardiance 25 mg tablet 25 mg PO DAILY Qty: 90 1RF omeprazole 40 mg capsule,delayed release(DR/EC) 40 mg PO BID Qty: 60 5RF albuterol sulfate 90 mcg/actuation HFA aerosol inhaler 2 inh INH Q6H PRN (Reason: acute brochitis) Qty: 18 2RF Shingrix (PF) 50 mcg/0.5 mL suspension for reconstitution 0.5 ml IM .COMPLEX Qty: 1 1RF Rx Instructions: 0.5 mL IM Apply once and then again 2-6 months later; sennosides [senna] 8.6 mg tablet 8.6 mg PO QPM docusate sodium [Stool Softener] 100 mg capsule 100 mg PO QPM venlafaxine 75 mg capsule,extended release 24hr 75 mg PO QAM loratadine [Allergy Relief (loratadine)] 10 mg tablet 10 mg PO QAM multivitamin [Multi-Vitamin] Tablet 1 tab PO QAM prochlorperazine maleate [Compazine] 5 mg tablet 5 mg PO QID PRN (Reason: Migraine Headache) mirtazapine [Remeron] 30 mg tablet 45 mg PO HS verapamil [Verelan PM] 200 mg capsule, [address] 200 mg PO QAM gabapentin 400 mg capsule 400 mg PO TID Rx Instructions: AM NOON BEFORE BED Discontinued aspirin 81 mg Tablet 81 mg PO QAM Discharge Orders: Discharge Order (Routine); Ordered 10/23/22 Ordered By: Daren Ferris Admission Data Admit Date/Time: 10/22/22 12:25 Attending Provider: Daren Ferris Admit Provider: Daren Ferris Primary Care Provider: Suzanne Gutierrez Other Providers: [facility],Home Healthcare
[2022-10-23] MEDS: DOCUSATE SODIUM 100 MG CAP PO SCH (08:02)
[2022-10-23] MEDS: PANTOprazole 40 MG TAB PO SCH (08:02)
[2022-10-23] MEDS: ASPIRIN 81 MG ECTAB PO SCH (08:02)
[2022-10-23] MEDS: GABAPENTIN 400 MG CAP PO SCH (08:03)
[2022-10-23] MEDS ORDERED: lisinopril 5 MG TAB PO SCH (09:00)
[2022-10-23] MEDS ORDERED: VENLAFAXINE HCL XR 75 MG CAPXR PO SCH (09:00)
[2022-10-23] MEDS ORDERED: LORATADINE 10 MG TAB PO SCH (09:00)
[2022-10-23] MEDS ORDERED: NON-FORMULARY MEDICATION (Multivitamin Tablet) PO SCH (09:00)
[2022-10-23] MEDS ORDERED: LANTUS PER UNIT CHARGE SQ ONE (09:00)
[2022-10-23] MEDS ORDERED: MULTIVITAMIN TAB PO SCH (09:00)
[2022-10-23] MEDS ORDERED: VENLAFAXINE HCL XR 150 MG CAPXR PO SCH (09:00)
== END 2022-10-23 12:54 | disposition home health service (06) ==
LOC: ASU 07:51 → INTOOBSV 12:25 → 3E 12:46

== ENCOUNTER 2023-02-14 07:45 | Observation (INO) ==
--- NOTE | 2023-02-02 11:44 | Anesthesiology Consultation ---
Date of Service February 02, 2023 Assessment & Plan (1) Encounter for pre-operative examination: - Check BSG AM DOS - COVID screening: Per assessment on 02/02: No known COVID-19 positive contacts or current COVID-19 related symptoms. Travel screen negative. Patient vaccinated. At surgeon discretion if preop Covid testing being done. - S/P Right TKA (10/22/22): SAB at L3/4 (x1 attempt) + PNB at [facility]. No issues noted per post-op anesthesia progress note. - Outpatient joint assessment: Pt currently scheduled for inpatient pathway. If surgeon requests review for outpatient joint pathway, patient is not recommended candidate for outpatient joint program from anesthesia standpoint. Chart Review Chart Review: Acceptable Risk for Surgery and Patient NOT seen in Pre Admission Testing History Surgery Operation Date: 02/14/23 10:45 Proposed Procedures p Left Total Knee Arthroplasty - Daren Ferris, Height/Weight Height: 6 ft 3 in Weight: 115.666 kg Allergies Allergy/AdvReac Type Severity Reaction Status Date / Time Penicillins Allergy Unknown childhood, Verified 02/02/23 11:37 unknown Medications Home Medications Medication Instructions Recorded Confirmed Last Taken venlafaxine 150 mg 150 mg PO QAM 08/16/19 02/02/23 10/20/22 09:00 capsule,extended release 24 hr (Effexor XR) lorazepam 1 mg tablet 2 mg PO BID PRN Anxiety 11/29/19 02/02/23 10/21/22 21:00 docusate sodium 100 mg capsule 100 mg PO QPM 03/10/20 02/02/23 10/20/22 21:00 (Stool Softener) sennosides 8.6 mg tablet (senna) 8.6 mg PO QPM 03/10/20 02/02/23 10/21/22 21:00 venlafaxine 75 mg capsule,extended 75 mg PO QAM 03/10/20 02/02/23 10/20/22 09:00 release 24 hr lisinopril 5 mg tablet 5 mg PO QAM #90 tabs 05/01/20 02/02/23 10/20/22 09:00 atorvastatin 40 mg tablet (Lipitor) 40 mg PO HS #90 tabs 05/02/20 02/02/23 10/20/22 21:00 empagliflozin 25 mg tablet 25 mg PO DAILY #90 tabs 05/02/20 02/02/23 10/19/22 09:00 (Jardiance) varicella-zoster glycoE [id number] 0.5 ml IM .COMPLEX #1 ea 05/28/20 10/22/22 Unknown adj(PF) 50 mcg/0.5 mL IM susp, kit (Shingrix (PF)) omeprazole 40 mg capsule,delayed 40 mg PO BID #60 caps 09/05/20 02/02/23 10/21/22 20:00 release albuterol sulfate 90 mcg/actuation 2 inh inhalation Q6H PRN acute 12/29/20 02/02/23 10/22/22 07:00 aerosol inhaler brochitis #18 grams loratadine 10 mg tablet (Allergy 10 mg PO QAM 09/15/22 02/02/23 10/20/22 09:00 Relief (loratadine)) multivitamin 1 tab PO QAM 09/15/22 02/02/23 10/20/22 09:00 metformin 500 mg tablet 1,000 mg PO BID 10/06/22 02/02/23 10/22/22 06:00 tizanidine 4 mg capsule (Zanaflex) 4 mg PO Q8H PRN Muscle Spasm 10/06/22 02/02/23 Unknown gabapentin 400 mg capsule 400 mg PO TID 10/22/22 02/02/23 Unknown mirtazapine 30 mg tablet (Remeron) 45 mg PO HS 10/22/22 02/02/23 10/21/22 21:00 prochlorperazine maleate 5 mg 5 mg PO QID PRN Migraine Headache 10/22/22 02/02/23 Unknown tablet (Compazine) verapamil 200 mg capsule 24hr 200 mg PO QAM 10/22/22 02/02/23 10/20/22 09:[address],ext.release (Verelan PM) celecoxib 200 mg capsule (Celebrex) 200 mg PO BID #28 caps 10/23/22 02/02/23 Unknown dulaglutide 0.75 mg/0.5 mL 0.75 mg subcut WK 02/02/23 02/02/23 Unknown subcutaneous pen injector (Trulicity) Past Medical History Medical History Anxiety and depression Bulging discs L4, L5 Cervical post-laminectomy syndrome Limited ROM Chronic obstructive pulmonary disease Diabetes mellitus, type 2 Dysphagia Occastional, chronic issue - stable Fibromyalgia Gastroesophageal reflux Hearing loss, left History of COVID-19 10/2021 - mild cold symptoms> resolved Hyperlipidemia Hypertension Lumbar disc herniation Migraine Obesity Occipital neuralgia Chronic pain, stable Peripheral neuropathy Hands, feet Sleep apnea Mild- noncompliant with device Past Family History Family History Uncle Lung cancer Grandfather Lung cancer Aunt Diabetes Grandmother Diabetes Sister Diabetes Father Diabetes Depression Family history of esophageal cancer Mother Diabetes Depression Myocardial infarction Other No family history of adverse response to anesthesia Denies family history of Colon cancer Ovarian cancer Prostate cancer Breast cancer Past Surgical History Surgical History H/O cervical spinal arthrodesis History of carpal tunnel surgery of left wrist History of colonoscopy History of fusion of cervical spine C5 C6 C7 History of neck surgery nerve ablation to C2, C3, C4, C5 History of surgery nerve ablation L4, L5, S1 History of tooth extraction History of total knee replacement Right TKA (10/22/22): SAB at L3/4 (x1 attempt) + PNB at [facility]. No issues noted per post-op anesthesia progress note. History of wisdom tooth extraction S/P knee surgery Left knee arthroscopy/PMM (12/05/19): LMA#5 at [facility]. No issues noted per post- op anesthesia progress note. Social History Smoking Status: Current every day smoker tobacco type: cigarettes Smoking cigarettes per day: 30-advised Do You Dip or Chew Tobacco: Yes (1 can/month- advised) Hx Alcohol Use: Yes alcohol intake frequency: holidays/special occasions only substance use type: does not use Lab Results Anesthesia Preop Results Results Anesthesia Widget: WBC 7.51 K/ul (4.8-10.8) 01/19/23 Hgb 15.3 g/dl (14.0-18.0) 01/19/23 Hct 46.3 % (42.0-52.0) 01/19/23 Plt 247 K/uL (130-400) 01/19/23 Na 137 mmol/L (136-145) 01/19/23 K 4.1 mmol/L (3.5-5.1) 01/19/23 Cl 108 mmol/L (98-107) H 01/19/23 CO2 24 mmol/L (21-32) 01/19/23 BUN 18 mg/dl (6-23) 01/19/23 Creat 0.74 mg/dl (0.6-1.4) 01/19/23 Glucose Level 120 mg/dl (70-99(Fasting)) H 01/19/23 PT 10.3 Seconds (9.0-12.0) 01/19/23 PTT 28.5 Seconds (21.0-31.0) 01/19/23 INR 0.9 (0.9-1.1) 01/19/23 HA1c 7.5 % (4.5-5.6) H 01/19/23 Blood Type O Positive 01/19/23 Antibody Screen NEGATIVE 01/19/23 Testing Electrocardiogram Date: 09/22/22 Findings: + NSR @ (93bpm ) Normal EKG per cardio Chest X-Ray Date: 09/22/22 Findings: + NAD Stress Test Date: 08/12/20 Type: nuclear Lexiscan nuclear cardiac stress test negative for ischemia Small area of mild intensity perfusion defect in the apical anteroseptum at rest, normal in stress this is suggestive of an attenuation artifact. LV EF 59%. Gated SPECT images reveals normal myocardial thickening and wall motion
[~2023-02-14 07:45] MED LIST changes: +BUPIVACAINE 0.25% PF 30 ML VIAL ONE; -ROPIVACAINE 0.5% 5 MG/ML 30 ML VIAL ONE; +ceFAZolin 2000MG 2,000 MG/15 ML SYR IV SCH
[2023-02-14] MEDS ORDERED: MIDAZOLAM HCL 1 MG/ML 2ML VIAL ONE (09:15)
[2023-02-14] MEDS ORDERED: PROPOFOL IV EMULSION 10 MG/ML 20 ML VIAL IV ONE ×2 (09:15→12:12)
[2023-02-14] MEDS ORDERED: fentaNYL citrate PF 100 MCG/2 ML VIAL ONE (09:15)
[2023-02-14] MEDS ORDERED: LIDOCAINE 2% 2 ML VIAL/AMP(20MG/ML) INFIL ONE (09:15)
--- NOTE | 2023-02-14 09:38 | History & Physical Bridge Note ---
Date of Service February 14, 2023 History & Physical Bridge Note I have examined the patient, reviewed the History & Physical and in the interval since the performance of the History & Physical I have noted the following changes of clinical significance: no changes noted
[2023-02-14] MEDS ORDERED: ORTHO JOINT ANESTHETIC ONE (10:09)
[2023-02-14] MEDS ORDERED: ONDANSETRON INJ 2 MG/ML 2 ML VIAL IV PRN ×2 (10:16→15:06)
[2023-02-14] MEDS ORDERED: fentaNYL citrate PF 100 MCG/2 ML VIAL IV PRN (10:16)
[2023-02-14] MEDS ORDERED: ATROPINE SULFATE 0.1 MG/ML 10ML SYR IV PRN (10:16)
[2023-02-14] MEDS ORDERED: ePHEDrine sulfate 50 MG/ML AMP IV PRN (10:16)
--- NOTE | 2023-02-14 12:17 | Operative Report ---
PG Post Operative Report Pre & Post Diagnosis Operation Date: 02/14/23 10:15 Pre-Op Diagnosis: Left Knee Degenerative Joint Disease Post-Op Diagnosis: Left Knee Degenerative Joint Disease I identified the patient and participated in the time-out.: Yes Procedure Operation Date: 02/14/23 10:15 Actual Procedures p Left Total Knee Arthroplasty(Left) - Daren Ferris DO Surgeon Daren Ferris DO Manager Housekeeping Daren Foss PA-C Estimated Blood Loss 30 Findings Consistent with Post-Op Diagnosis Specimens Left femoral tibial bone Description of Procedure Implants used: I used a Josy Persona total knee arthroplasty system with a size 12 PS femur, H tibia, 40 mm oval patella, and a size 10 CPS polyethylene bearing. All c omponents were cemented in place with Biomet cement. Sarabjit ingram [facility] for the above procedure. He was seen in the preoperative holding area and the operative extremity was identified and signed. He was given a preoperative antibiotic, TXA, a spinal anesthetic and an adductor nerve block. He was taken back to the operating room and laid on the table in supine position. He was given basic sedation. The operative knee was then prepped and draped in sterile fashion. A timeout was done, and the patient and the operative extremity was properly identified. A midline incision was made directly over the patella. Dissection was taken down to the extensor mechanism. A midvastus arthrotomy was used. The medial retinaculum was released and the fat pad was mostly excised. The knee was flexed and the ACL, PCL, and meniscus were removed. A drill was sent down the center of the femoral canal followed by an intramedullary mendez. Off that mendez a distal femoral cutting block was placed. 9 mm was resected off the distal femur at 5 of valgus. A posterior referencing AP sizing guide was then placed on the distal femur. The femur measured to be a size 10. 2 drill holes were placed in 3 of external rotation. A 4-in-1 cutting block was then impacted into place. Anterior, posterior, and chamfer cuts were then made. The proximal tibia was then exposed. An external tibial alignment guide was placed. A tibial cut guide was then anchored in place and the proximal tibia was then resected. The posterior aspect of the knee was then opened up and any additional meniscus fragments and osteophytes were removed. The tibia measured to be a size H. The tibial plate was then placed in the appropriate rotation and the tibia was drilled and punched. Trial components were then placed. I used a size 10 CPS polyethylene insert. The knee was brought through a full range of motion and felt to be stable. The peg holes for the femoral component were then drilled. The patella was then everted and 9 mm was resected off the posterior aspect of the patella. The patella measured to be a size 40 oval. 3 peg holes were then drilled. A trial patella was placed. The knee was once again brought through a full range of motion and felt to be stable. Trial components were then removed. The surrounding soft tissues were injected with 100 cc of an orthopedic pain control cocktail. All components were then cemented into place with Biomet cement. The final polyethylene insert was then snapped into place. Once cement was dry the tourniquet was deflated. Hemostasis was obtained. A dilute betadyne lavage was then done for 3 minutes. The joint was then irrigated with normal saline solution. The midvastus arthrotomy was then closed with #1 Vicryl suture. The skin was closed with 2-0 Vicryl, 3-0V lock suture, and yovany. A soft compressive dressing was placed. He was then transferred to a hospital bed and taken to the postanesthesia care unit in stable condition. He tolerated the procedure well. Daren Foss PA-C, was present for the entire procedure. He was critical for patient positioning, prepping, draping, retraction exposure, wound closure and application of sterile dressing. I attest to the content of the Intraoperative Record and any orders documented therein. Any exceptions are noted below.
--- NOTE | 2023-02-14 14:39 | Anesthesiology Progress Note ---
Date of Service February 14, 2023 Anesthesia Post Procedure Vital Signs Vital Signs: Temp Pulse Pulse Resp BP Pulse Ox O2 Del Method 02/14/23 14:30 80 13 120/76 94 Room Air 02/14/23 14:00 76 12 111/65 94 Room Air 02/14/23 13:45 86 15 109/69 93 Room Air 02/14/23 13:30 78 12 100/55 L 93 Room Air 02/14/23 13:20 36.5 C 75 12 98/62 L 94 Room Air 02/14/23 13:10 81 18 103/62 94 Room Air 02/14/23 13:00 77 12 103/57 L 94 Room Air 02/14/23 12:50 84 14 98/62 L 94 Room Air 02/14/23 12:42 36.6 C 92 H 18 91/50 L 97 Room Air 02/14/23 08:41 36.9 C 82 20 109/71 98 Room Air Pain Intensity Left Knee: Pain Intensity: 6 Transfer of Care Handoff Completed per policy Notes Mental Status: alert / awake / arousable and participated in evaluation Patient Amnestic to Procedure: Yes Nausea / Vomiting: adequately controlled Pain: adequately controlled Airway Patency, RR, SpO2: stable & adequate BP & HR: stable & adequate Hydration State: stable & adequate Neuraxial Anesthesia: was administered and sensory block is resolving Anesthetic Complications: no major complications apparent and Pt Satisfied with anesthetic care
[2023-02-14] MEDS ORDERED: ALBUTEROL HFA 8 GM INHALER INH PRN (15:06)
[2023-02-14] MEDS ORDERED: bisacodyL 10 MG SUPP PR PRN (15:06)
[2023-02-14] MEDS ORDERED: MAGNESIUM HYDROXIDE SUSP 30 ML UDC PO PRN (15:06)
[2023-02-14] MEDS ORDERED: METOCLOPRAMIDE HCL INJ 5 MG/ML 2 ML VIAL IV PRN (15:06)
[2023-02-14] MEDS ORDERED: HYDROmorphone INJ 0.5 MG/0.5 ML SYR IV PRN (15:06)
[2023-02-14] MEDS ORDERED: NALOXONE HCL 0.4 MG/1 ML VIAL/CARP IV PRN (15:06)
[2023-02-14] MEDS ORDERED: PROCHLORPERAZINE MALEATE 5 MG TAB PO PRN (15:06)
[2023-02-14] MEDS ORDERED: SODIUM CHLORIDE 0.9% 1000ML 1,000 ML IV SCH (15:06)
[2023-02-14] MEDS ORDERED: tiZANidine HCL 4 MG TABLET PO PRN (15:06)
[2023-02-14] MEDS ORDERED: PHARMACY GLYCEMIC MGMT CONSULT PRN (15:06)
[2023-02-14] MEDS ORDERED: oxyCODONE HCL IR 5 MG TAB (IMMEDIATE RELEASE) PO PRN (15:06)
[2023-02-14] MEDS ORDERED: DEXTROSE 50% 50 ML SYRINGE IV PRN (15:45)
[2023-02-14] MEDS ORDERED: GLUCOSE 40% GEL 15 GM TUBE PO PRN (15:45)
[2023-02-14] MEDS ORDERED: CARBOHYDRATES FOR HYPOGLYCEMIA PO PRN (15:45)
[2023-02-14] MEDS ORDERED: GLUCOSE 10 TAB/TUBE PO PRN (15:45)
[2023-02-14] MEDS ORDERED: INSULIN ASPART PER UNIT CHARGE SC SCH (15:45)
[2023-02-14] MEDS ORDERED: GLUCAGON FOR INJ 1 MG VIAL IM PRN (15:45)
[2023-02-14] MEDS: GABAPENTIN 400 MG CAP PO SCH ×2 (15:57→19:24)
[2023-02-14] MEDS: ACETAMINOPHEN 500 MG TAB PO SCH ×2 (15:59→21:04)
[2023-02-14] MEDS: KETOROLAC 30 MG/ML VIAL IV SCH ×2 (16:00→21:06)
[2023-02-14] MEDS ORDERED: INSULIN ASPART PER UNIT CHARGE SC ONE (16:30)
[2023-02-14] MEDS: ceFAZolin 2000MG 2,000 MG/15 ML SYR IV SCH (18:38)
[2023-02-14] MEDS ORDERED: LANTUS PER UNIT CHARGE SC STA (19:13)
[2023-02-14] MEDS: ASPIRIN 81 MG ECTAB PO SCH (19:22)
[2023-02-14] MEDS: PANTOprazole 40 MG TAB PO SCH (19:23)
[2023-02-14] MEDS: DOCUSATE SODIUM 100 MG CAP PO SCH (19:23)
[2023-02-14] MEDS: INSULIN ASPART PER UNIT CHARGE SC SCH (20:35)
[2023-02-14] MEDS ORDERED: SENNA 8.6 MG TAB PO SCH (21:00)
[2023-02-14] MEDS ORDERED: MIRTAZAPINE TAB 15 MG TAB PO SCH (21:00)
[2023-02-14] MEDS ORDERED: ATORVASTATIN 40 MG TAB PO SCH (21:00)
[2023-02-14] MEDS: LORazepam 1 MG TAB PO SCH (21:03)
--- NOTE | 2023-02-14 22:34 | XRay Report ---
XR knee LT 1 or 2V routine CLINICAL HISTORY: Surgical Post Op TECHNIQUE: 2 views of the left knee were obtained. Comparison: Comparison is made to MRI left knee 01/07/2021 FINDINGS: Patient is status post total knee arthroplasty with expected postsurgical changes including soft tiss ue swelling and subcutaneous emphysema. No periarticular lucency or hardware fracture is seen. IMPRESSION: Degenerative changes without evidence of acute injury. ACT 112: Negative or not required by law. Electronically signed by: Edmundo Lynch M.D. 02/14/2023 10:33 PM
[2023-02-15] MEDS ORDERED: INSULIN ASPART PER UNIT CHARGE SC SCH
[2023-02-15] MEDS: ceFAZolin 2000MG 2,000 MG/15 ML SYR IV SCH (02:41)
[2023-02-15] MEDS: KETOROLAC 30 MG/ML VIAL IV SCH ×2 (05:24→09:48)
[2023-02-15] MEDS: ACETAMINOPHEN 500 MG TAB PO SCH (05:24)
--- NOTE | 2023-02-15 06:52 | Orthopedic Progress Note ---
Date of Service February 15, 2023 Assessment & Plan (1) Status post left knee replacement: Overall he is doing very well. He is not having much pain in the left knee. He will be seen by physical therapy today for ambulation and range of motion exercises. He is on aspirin for DVT prophylaxis. He can be discharged home later today. He will follow-up with orthopedics in 2 weeks. Jordan Whipple was seen and examined at bedside this morning. Overall is doing very well. He is not having much pain in the left knee. He has been up and ambulating to the bathroom. He has no complaints.. Review of Systems All systems reviewed & are unremarkable except as noted in HPI & below. Physical Exam On physical examination of left knee, the dressing is clean and dry. His leg is out full extension. He has active dorsiflexion and plantarflexion of his left ankle.. Results & Data Results & Data Laboratory Results . Diagnostic Findings Postoperative x-rays of the left knee show the prosthesis to be in anatomic alignment without any evidence of fracture, screws, or loosening. PG Care Time/CCT Total # of Minutes Spent Total Time Spent with Patient: Total time spent is greater than 50% in coordination of care (as documented) at patient's floor/unit and/or counseling patient: Coding Level of Care Code 48631 Post Operative Follow-Up Diagnoses Status post left knee replacement Z96.652
--- NOTE | 2023-02-15 06:53 | Discharge Summary ---
Date of Service February 15, 2023 Principal Diagnosis Same as "Discharge Diagnosis" noted below under Discharge Instructions. Discharge Exam On physical examination of left knee, the dressing is clean and dry. His leg is out full extension. He has active dorsiflexion and plantarflexion of his left ankle.. Discharge Data Procedures Performed Operation Date: 02/14/23 10:15 Actual Procedures p Left Total Knee Arthroplasty(Left) - Daren Ferris DO Ordered Studies 02/14/23 05:00 US - OR guided needle placemen Routine Hospital Course (1) Status post left knee replacement: On February 14, 2023 Sarabjit arrived at [facility] and underwent a left knee replaced without complication. He had a spinal anesthetic. Postoperatively he was started on aspirin for DVT prophylaxis and transferred to the general orthopedic floors. His hospital course was uneventful. On postop day #1, his vital signs were stable and his pain was well controlled. He was able to participate well with physical therapy doing ambulation and range of motion exercises. He was then discharged home. He will follow-up with orthopedics in 2 weeks. PG Care Time/CCT Total # of Minutes Spent Total Time Spent with Patient: Total time spent is greater than 50% in coordination of care (as documented) at patient's floor/unit and/or counseling patient: Discharge Plan Discharge Items Patient Disposition: Home - Home Health Services Reason For Visit: DJD Left Knee Discharge Diagnosis: Left knee replacement Activity: Per Instructions section Non-emergency contact: Surgeon Call non-emergency contact if: your wound has increased redness and your wound has increased drainage Follow-up/Referrals: Suzanne Gutierrez MD [Primary Care Provider] - Diet: Regular Addtl Attending Provider Instructions: Activity and Therapy Recommendations: * If you are using [facility] then therapy will be provided at your home until they feel you have accomplished all of your goals. * If you are using [facility] then Physical Therapy will be provided until they feel you are ready to start Outpatient Physical Therapy. * If you are not using home therapy then Outpatient Physical Therapy should start about 3-5 days from your day of surgery. Therapy will last about 6-10 weeks * It is important not to put a pillow under your knee when you are relaxing or sleeping. It is just as important to make sure you are getting your knee perfectly straight as it is to regain your knee bend. * You were shown a series of exercises in the hospital. Do these exercises three times each day including the exercises you were shown in physical therapy. * Get up and walk several times each day. For the first four weeks, try not to stand or walk for more than one hour at a time. If you do stand or walk for more than one hour, you will not hurt anything, but your leg will likely swell. * As you feel comfortable, you may change from the walker or crutches to a cane and then to independent walking. Medications: * Narcotic You will likely be sent home from the hospital with a prescription for the narcotic pain medication that worked best throughout your stay. * Aspirin Most patients will be required to take Aspirin 81mg twice a day for 6 weeks after surgery. This is obtained [id number] and a prescription is not necessary. * Other medications may be prescribed for specific circumstances. If you have any questions, please call the office at . * Resume previous home medications unless otherwise instructed TEDs/Elastic Stockings: The white elastic stockings help limit swelling and prevent blood clots from forming in your legs.~ The more you wear them, the more they work. Wear them for six weeks. Dressing Care: The dressing can be changed after physical therapy on postop day #1. Daily dry dressing changes for a few days, especially if the incision is still draining some. If the incision is not draining then you may leave the yovany open to air. If there is a little bit of drainage or if the yovany are getting stuck on your clothing then cover the incision with a dry dressing. The yovany will be removed at your 2 week follow-up appointment. Showering: You may shower 5 days from the day of surgery as long as the incision is no longer draining. You may shower with the yovany exposed. Let soapy water run over the yovany and pat them dry. Do not scrub or soak the incision. Things To Watch For: * Drainage from the incision site that occurs more than one week after your surgery. * Increased redness at the incision site. * Fever above 102 degrees Fahrenheit. * Unusual chest pain or shortness of breath. * Call [facility] at with any of the above problems Follow-Up Visit: Follow-up with Dr. Ferris's PA (Daren Foss) 2-3 weeks after your day of surgery. He will remove your yovany and answer any questions. If you have any additional questions or concerns, Dr Ferris is usually in the office at the same time and will be available An appointment was probably scheduled when you signed-up for surgery in the office. If you have any questions call Office Instructions: More detailed instructions as well as Frequently Asked Questions were provided in a folder by our office when you signed-up for surgery. Please review these instructions when you get home. If you have any further questions or concerns, please feel free to call the office at [phone] Pending Studies at Discharge: No Stand-Alone Forms: [facility] Medications and DC Order Prescriptions: New aspirin 81 mg Tablet,Delayed Release (Dr/Ec) 81 mg PO BID 42 Days Qty: 84 0RF hydrocodone-acetaminophen 7.5-325 mg tablet 1 tab PO Q6H PRN (Reason: pain) Qty: 40 0RF Continued tizanidine [Zanaflex] 4 mg capsule 4 mg PO Q8H PRN (Reason: Muscle Spasm) metformin 500 mg tablet 1,000 mg PO BID venlafaxine [Effexor XR] 150 mg capsule,extended release 24hr 150 mg PO QAM lorazepam 1 mg tablet 2 mg PO BID lisinopril 5 mg tablet 5 mg PO QAM Qty: 90 1RF atorvastatin [Lipitor] 40 mg tablet 40 mg PO HS Qty: 90 1RF Jardiance 25 mg tablet 25 mg PO DAILY Qty: 90 1RF omeprazole 40 mg capsule,delayed release(DR/EC) 40 mg PO BID Qty: 60 5RF albuterol sulfate 90 mcg/actuation HFA aerosol inhaler 2 inh INH Q6H PRN (Reason: acute brochitis) Qty: 18 2RF sennosides [senna] 8.6 mg tablet 8.6 mg PO QPM docusate sodium [Stool Softener] 100 mg capsule 100 mg PO QPM venlafaxine [Effexor XR] 75 mg capsule,extended release 24hr 75 mg PO QAM loratadine [Allergy Relief (loratadine)] 10 mg tablet 10 mg PO QAM multivitamin Tablet 1 tab PO QAM prochlorperazine maleate [Compazine] 5 mg tablet 5 mg PO QID PRN (Reason: Migraine Headache) mirtazapine [Remeron] 30 mg tablet 45 mg PO HS verapamil [Verelan PM] 200 mg capsule, [address] 200 mg PO QAM gabapentin 400 mg capsule 400 mg PO TID Rx Instructions: AM NOON BEFORE BED Trulicity 0.75 mg/0.5 mL Pen Injector 0.75 mg SUBCUT WK Patient Comments: SUNDAYS Admission Data Admit Date/Time: 02/14/23 12:44 Attending Provider: Daren Ferris Admit Provider: Daren Ferris Primary Care Provider: Suzanne Gutierrez
[2023-02-15] MEDS: GABAPENTIN 400 MG CAP PO SCH ×2 (08:07→12:48)
[2023-02-15] MEDS: PANTOprazole 40 MG TAB PO SCH (08:08)
[2023-02-15] MEDS: ASPIRIN 81 MG ECTAB PO SCH (08:08)
[2023-02-15] MEDS: DOCUSATE SODIUM 100 MG CAP PO SCH (08:08)
[2023-02-15] MEDS: INSULIN ASPART PER UNIT CHARGE SC SCH ×2 (08:08→12:47)
[2023-02-15] MEDS: LORazepam 1 MG TAB PO SCH (08:13)
[2023-02-15] MEDS ORDERED: MULTIVITAMIN TAB PO SCH (09:00)
[2023-02-15] MEDS ORDERED: VENLAFAXINE HCL XR 150 MG CAPXR PO SCH (09:00)
[2023-02-15] MEDS ORDERED: VENLAFAXINE HCL XR 75 MG CAPXR PO SCH (09:00)
[2023-02-15] MEDS ORDERED: LORATADINE 10 MG TAB PO SCH (09:00)
[2023-02-15] MEDS ORDERED: lisinopril 5 MG TAB PO SCH (09:00)
[2023-02-15] MEDS ORDERED: VERAPAMIL HCL 180 MG TABCR PO SCH (09:00)
--- NOTE | 2023-02-15 12:28 | XRay Report ---
XR knee LT 1 or 2V routine CLINICAL HISTORY: pt fall status post L knee TECHNIQUE: 2 views of the left knee were obtained. Comparison: Comparison is made to left knee radiographs 02/14/2023 FINDINGS: Patient is status post total knee arthroplasty with expected postsurgical changes including soft tiss ue swelling and subcutaneous emphysema. No periarticular lucency or hardware fracture is seen. IMPRESSION: Postoperative changes without evidence of acute fracture in this patient status post fall. ACT 112: Negative or not required by law. Electronically signed by: Edmundo Lynch M.D. 02/15/2023 12:27 PM
== END 2023-02-15 13:31 | disposition home health service (06) ==
LOC: 3E 07:45 → ASU 07:45